=== PATIENT | female | born 1975 | race Hispanic/Latino ===

== ENCOUNTER 2025-04-07 09:52 | Emergency (ER) | payer SELFPAY ==
[2025-04-07] VITALS (11 sets, daily range): BP systolic 117–139; BP diastolic 63–84; PULSE 59–82; RESP 18; TEMP 36.8; O2SAT 95–100; BMI 19.5
[2025-04-07] MEDS: ONDANSETRON 4 MG/2 ML INJ IV (10:30)
[2025-04-07 10:57] LABS: Add Manual Diff / Slide Review NO; Hematocrit 38.2 % (36-46); Hemoglobin 12.8 g/dL (12.0-16.0); Lymphocytes Absolute Auto 1700 /uL (1100-4500); Mean Corpuscular HGB Conc 33.6 % (30-36); Mean Corpuscular Hemoglobin 31.2 PG (26-34); Mean Corpuscular Volume 92.7 fL (80-100); Platelet Count 237 X10^3/uL (150-400)
[2025-04-07 11:00] LABS: Alanine Aminotransferase 16 IU/L (<35); Albumin 4.4 g/dL (3.5-5.0); Albumin Globulin Ratio 1.4 (1.0-2.8); Alkaline Phosphatase 65 U/L (38-126); Blood Urea Nitrogen 17 mg/dL (7-17); Calcium 9.0 mg/dL (8.4-10.2); Carbon Dioxide 23 mmol/L (22-32); Chloride 106 mmol/L (98-107); Estimated Glomerular Filt Rate > 60 mL/min (>60); Globulin 3.2 g/dL (1.7-4.1); Glucose 138 mg/dL (70-99); HEMOLYSIS < 15 (0-50); Lipase 97 U/L (23-300); Potassium 3.8 mmol/L (3.4-5.1); Sodium 137 mmol/L (137-145); Total Protein 7.6 g/dL (6.3-8.2)
--- NOTE | 2025-04-07 12:51 | DI.CT.S_ITS ---
PROCEDURE: CT ABDOMEN PELVIS W CON INDICATIONS: lower abdominal pain TECHNIQUE: After the administration of intravenous contrast, axial sections acquired from the lung bases to the pubic symphysis. Coronal and sagittal reformats were performed. For radiation dose reduction, the following was used: automated exposure control, adjustment of mA and/or kV according to patient size. COMPARISON: None. FINDINGS: Image quality: Diagnostic. Lower Chest: No significant findings. ABDOMEN: Liver: No solid mass. Gallbladder: No radiopaque gallstones or wall thickening. Biliary ducts: No biliary dilation. Pancreas: No ductal dilation. Spleen: Size is within normal limits. Adrenal Glands: No adrenal nodules. Kidneys and Ureters: There is [id number] left-sided hydronephrosis and hydroureter. No obvious obstructing stone is seen. No right-sided hydronephrosis or hydroureter. No solid mass. No complex renal cystic lesion which requires follow up. Stomach and Bowel: There is no bowel obstruction or abnormal bowel wall thickening. No abscess collection. Peritoneum: Small amount of free fluid is noted in lower pelvis. No peritoneal free air. Ventral Wall: No significant ventral hernia. Abdominal Nodes: No retroperitoneal or mesenteric adenopathy by size criteria. Vessels: Aorta and inferior vena cava are normal in size. PELVIS: Pelvic Organs: Enlarged uterus with heterogeneous enhancement and suggestion of multiple uterine fibroids. Right ovarian cyst measures 1.7 x 1.6 cm in size is seen. Bladder: No gross bladder wall thickening. 4 mm stone is seen in dependent portion of left bladder lumen. Pelvic Nodes: No enlarged lymph nodes. Miscellaneous: No inguinal hernias are seen. Bones: No aggressive osseous abnormality. IMPRESSION: 1. Findings the is suggestive of a recently passed left-sided renal stone with mild to moderate left-sided hydronephrosis and hydroureter and a 4 mm stone seen in dependent portion of left bladder lumen. No gross bladder wall abnormalities. No right- sided hydronephrosis or hydroureter. 2. Bulky appearing uterus with multiple uterine fibroids. Possible right ovarian cyst as above. 3. No bowel obstruction or abnormal bowel wall thickening. Small amount of free fluid in lower pelvis. No gross free air. Dictated by: Sreedhar Kaur M.D. on 04/07/2025 at 13:38 Approved by: Sreedhar Kaur M.D. on 04/07/2025 at 14:04
--- NOTE | 2025-04-07 12:51 | ED.ABDPAIN ---
HPI - Abdominal Pain General Chief Complaint: Abdominal Pain Stated Complaint: STOMACHACHE, VOMITING, NAUSEA Time Seen by Provider: 04/07/25 12:50 Source: patient Mode of arrival: Ambulatory History of Present Illness HPI narrative: 50-year-old female with sudden left lower quadrant abdominal pain that is sharp in nature With some vomiting and nausea . Upon examination, the pain has resolved. Related Data Allergies Allergy/AdvReac Type Severity Reaction Status Date / Time No Known Drug Allergies Allergy Verified 04/07/25 10:27 Review of Systems Review of Systems ROS Unobtainable: All systems reviewed & are unremarkable except as noted in HPI and below Patient History Social History Smoking Status: Never smoker Smoking Status: Never smoker Exam Initial Vital Signs Initial Vital Signs: Vital Signs Temperature 98.2 F 04/07/25 10:20 Pulse Rate 68 04/07/25 10:20 Respiratory Rate 18 04/07/25 10:20 Blood Pressure 137/84 04/07/25 10:20 Pulse Oximetry 98 04/07/25 10:20 Oxygen Delivery Method Room Air 04/07/25 10:20 General: Healthy appearing, in no acute distress. Able to give a complete and coherent history. Well-nourished well-developed HEENT: Moist mucous membranes, normal sclera with reactive pupils, Neck: No JVD, supple Respiratory: Lungs are clear to auscultation, no wheezing no rales no rhonchi. Full and symmetrical air movement Cardiac: Regular rate and rhythm no murmurs no bruits Abdomen: Soft, nontender, no rebound or guarding, no flank pain Skin: Warm and dry, no rashes Neurologic: Grossly neurologically intact with no obvious asymmetries or abnormalities Extremities: No trauma, well perfused Psych: Cooperative, appropriate insight and affect Course Course Course Narrative: Patient's pain resolved on her own after urinating a couple times. Orders Ordered: ED Orders 04/07/25 12:51 CT abdomen pelvis w con Stat 04/07/25 13:30 Urine Microscopic Stat Discontinued Medications Ondansetron HCl (Ondansetron 4 Mg/2 Ml Inj) 4 mg IV NOW PRN PRN Reason: Nausea And Vomiting Last Admin: 04/07/25 10:30 Dose: 4 mg Documented By: LORI Ondansetron HCl (Ondansetron 4 Mg Odt) 4 mg PO NOW PRN PRN Reason: Nausea And Vomiting Reevaluation(s) Reevaluation #1: Upon re-evaluation, patient passed her renal stone on her own and is asymptomatic now. Vital Signs Vital signs: Vital Signs - 8 hr 04/07/25 13:23 04/07/25 13:32 04/07/25 13:33 Pulse Rate 62 74 Blood Pressure 137/79 Pulse Oximetry 95 100 04/07/25 13:33 04/07/25 13:57 04/07/25 13:57 Pulse Rate 63 82 Blood Pressure 134/70 Pulse Oximetry 100 100 04/07/25 14:00 04/07/25 14:00 04/07/25 14:30 Pulse Rate 76 Blood Pressure 120/72 128/63 Pulse Oximetry 100 04/07/25 14:30 04/07/25 15:00 04/07/25 15:00 Pulse Rate 66 59 L Blood Pressure 117/82 Pulse Oximetry 100 100 04/07/25 15:30 04/07/25 15:30 04/07/25 16:00 Pulse Rate 59 L 59 L Blood Pressure 117/73 Pulse Oximetry 100 100 04/07/25 16:01 04/07/25 16:01 Pulse Rate 65 Blood Pressure 139/75 Pulse Oximetry 99 MDM - Abdominal Pain Lab Data 04/07/25 10:37 04/07/25 10:37 Labs: Lab Results 04/07/25 04/07/25 Range/Units 10:37 13:30 WBC 11.1 H (4.5-11.0) X10^3/uL RBC 4.12 (4.0-5.2) X10^6/uL Hgb 12.8 (12.0-16.0) g/dL Hct 38.2 (36-46) % MCV 92.7 (80-100) fL MCH 31.2 (26-34) PG MCHC 33.6 (30-36) % RDW 13.0 (11.6-14.8) % Plt Count 237 (150-400) X10^3/uL Neut % (Auto) 79.2 H (50-75) % Lymph % (Auto) 15.6 L (25-40) % [place] % (Auto) 4.6 (3-14) % Eos % (Auto) 0.2 L (2-4) % Baso % (Auto) 0.4 (0-2) % Neut # (Auto) 8800 H (3961-3135) /uL Lymph # (Auto) 1700 (8626-1367) /uL [place] # (Auto) 500 (0-900) /uL Eos # (Auto) 0 (0-450) /uL Baso # (Auto) 0 (0-100) /uL Sodium 137 (137-145) mmol/L Potassium 3.8 (3.4-5.1) mmol/L Chloride 106 (98-107) mmol/L Carbon Dioxide 23 (22-32) mmol/L BUN 17 (7-17) mg/dL Creatinine 0.76 (0.52-1.04) mg/dL Estimated GFR > 60 (>60) mL/min BUN/Creatinine Ratio 22.4 H (6-22) Glucose 138 H (70-99) mg/dL Calcium 9.0 (8.4-10.2) mg/dL Total Bilirubin 0.6 (0.2-1.3) mg/dL AST 26 (14-36) IU/L ALT 16 (<35) IU/L Alkaline Phosphatase 65 (38-126) U/L Total Protein 7.6 (6.3-8.2) g/dL Albumin 4.4 (3.5-5.0) g/dL Globulin 3.2 (1.7-4.1) g/dL Albumin/Globulin Ratio 1.4 (1.0-2.8) Lipase 97 (23-300) U/L Urine RBC 10-30/hpf H (0-5/HPF) Urine WBC None seen (0-5/HPF) Ur Squamous Epith Cells 0-1 /hpf (0-5/HPF) Urine Bacteria None seen (None) Urine Mucus 1+ H (Negative) Ur Culture Indicated? Cult not indicated Vol Urine Centrifuged 10ml (spun) Point of care testing: Point of Care Testing Test Results Negative Urine Dip Bedside Urine Glucose Negative Bedside Urine Bilirubin - Negative Bedside Urine Ketone ++ 40 Urine Specific [place] 1.020 Bedside Urine Occult Blood +++ Bedside Urine pH 6.0 Bedside Urine Protein +/- 15 Bedside Urine Urobilinogen - Negative Bedside Urine Nitrite - Negative Bedside Urine Leukocytes - Negative Esterase ECG Data Interpretation: EKG shows a normal axis, normal rhythm, rate of 69 beats per minute, normal LA intervals no ST T wave changes and no comparison needed. MDM Narrative Medical decision making narrative: Patient passed a 4 mm renal stone on her own on the left side and was completely asymptomatic afterwards. Discharge Plan Departure Patient Disposition: Home Clinical Impression: Kidney stone on left side Instructions: Kidney Stones -- Adult Activity Restrictions/Additional Instructions: The kidney stone has already passed. No need to follow up anymore as long as pain has resolved. Continue to hydrate well. Stand Alone Forms: Patient Portal/API
--- NOTE | 2025-04-07 13:01 | PC.NURSE ---
updated patient on wait time and possible ct scan soon.
--- NOTE | 2025-04-07 13:27 | EKG_ITS ---
[address] [address] Test Date: 2025-04-07 Pat Name: Karla Rivera Department: [facility] Room: Gender: Female [employer]room Machine Operator: MONE : [id number] Requested By: Order Number: [id number] Reading MD: Javan Marley Measurements Intervals [place] Rate: 69 P: 71 NM: 124 QRS: 67 QRSD: 76 T: 46 QT: 424 QTc: 454 Interpretive Statements Normal sinus rhythm Electronically Signed On 04-09-2025 13:47:40 PDT by Javan Marley
[2025-04-07 14:05] LABS: Culture Indicated Urine Cult Not Indicated
== END 2025-04-07 16:38 | disposition home or self-care (01) ==
PROVIDERS: Emergency Provider Family Medicine
DX: N20.0 Calculus of kidney (principal)
CPT/HCPCS: 36415; 74177; 80053; 81003; 81015; 81025; 83690; 85025; 93005; 96374; 99284; J2405; Q9967